=== PATIENT | male | born 1960 | race Caucasian/White ===

== ENCOUNTER 2018-04-18 16:54 | Emergency (ER) | payer BC, OTHER ==
--- NOTE | 2018-04-18 18:09 | EDM.PDOC ---
ED HPI GENERAL MEDICAL PROBLEM - General Chief Complaint: Lower Extremity Injury/Pain Stated Complaint: POSSIBLE BLOOD CLOT IN RT ANKLE AREA Time Seen by Provider: 04/18/18 17:29 Source of Information: Reports: Patient, RN Notes Reviewed - History of Present Illness INITIAL COMMENTS - FREE TEXT/NARRATIVE: 57-year-old male comes in with pain of right ankle and also swelling of the distal leg, right ankle. He states he has developed severe pain with weightbearing of the distal leg and ankle. He does not recall any particular injury to the leg or ankle. He does have history of some type of blood clot problem in the past, that is his major worry at this time. No chest pain or difficulty breathing. States it is very painful to walk on leg and ankle this evening. right ankle Pain Score (Numeric/FACES): 3 - Related Data Allergies Allergy/AdvReac Type Severity Reaction Status Date / Time loratadine [From Claritin] Allergy Other Verified 04/18/18 17:15 Home Meds: Home Meds Aspirin 81 mg PO DAILY 04/18/18 [History] Review of Systems - Review of Systems Review Of Systems: See Below Constitutional: Denies: Chills, Fever Mouth/Throat: Reports: No Symptoms Respiratory: Denies: Shortness of Breath Cardiovascular: Denies: Chest Pain GI/Abdominal: Denies: Abdominal Pain, Nausea, Vomiting Musculoskeletal: Reports: Leg Pain, Joint Pain (ankle) Skin: Denies: Bruising, Rash, Erythema ED EXAM, GENERAL - Physical Exam Exam: See Below General Appearance: Alert, Mild Distress Throat/Mouth: Normal Inspection Head: Atraumatic Neck: Supple, Full Range of Motion Respiratory/Chest: No Respiratory Distress, Lungs Clear, Normal Breath Sounds Cardiovascular: Regular Rate, Rhythm Extremities: Joint Swelling (R ankle, tender medial and lat ankle), Leg Pain (R distal leg, swelling R distal leg, tender post. leg). No: Increased Warmth, Redness Course - Vital Signs Last Recorded V/S: Last Vital Signs Temp 98.9 F 04/18/18 17:12 Pulse 59 L 04/18/18 17:12 Resp 18 04/18/18 17:12 BP 141/78 H 04/18/18 17:12 Pulse Ox 98 04/18/18 17:12 - Re-Assessments/Exams Free Text/Narrative Re-Assessment/Exam: 04/18/18 21:37 US of leg was neg for DVT or other apparent abnormality. Xrays of ankle neg. for fx. Departure - Departure Time of Disposition: 21:36 Disposition: Home, Self-Care 01 Condition: Fair Clinical Impression: Leg pain, right Ankle pain, right Qualifiers: Chronicity: acute Qualified Code(s): M25.571 - Pain in right ankle and joints of right foot - Discharge Information Instructions: Ankle Pain Referrals: PCP,None [Ordering Only Provider] - Forms: ED Department Discharge Additional Instructions: rest and elevate leg and ankle as much as possible. Advil or ibuprofen 600 mg 3 times daily with food for pain and inflamation. You may take tylenol in between doses for extra pain relief as needed. Follow up clinic if not much better within 3 to 4 days as expected. Return to ED if symptoms worsening in any way.
--- NOTE | 2018-04-19 07:58 | CR ---
Right ankle: Four views of the right ankle were obtained. Comparison: No previous study. Ankle mortise is symmetric. No fracture, dislocation or other bony abnormality is seen. Impression: 1. Nothing acute is appreciated on right ankle exam. Diagnostic code #1
--- NOTE | 2018-04-19 07:58 | US ---
Right lower extremity deep venous ultrasound: Duplex and color flow imaging was obtained of the right common femoral, proximal greater saphenous, superficial femoral, popliteal, posterior tibial and peroneal veins. Left common femoral vein was also evaluated. Findings: Normal phasic flow, augmentation and compression are seen. Impression: 1. No evidence of deep venous thrombosis is seen within the right lower extremity or within the left common femoral vein. Diagnostic code #1 I agree with preliminary report from [facility], finalized on 04/18/18, 10:36 PM Central Time
== END 2018-04-18 21:55 | disposition home or self-care (01) ==
LOC: JD.ED 16:54
DX: M25.571 Pain in right ankle and joints of right foot (principal); Z79.82 Long term (current) use of aspirin; Z88.8 Allergy status to other drugs, medicaments and biological substances; Z87.891 Personal history of nicotine dependence
CPT/HCPCS: 73610-26-RT; 73610-RT; 93971-26-RT; 93971-RT; 99282; 99284-25